=== PATIENT | female | born 1960 | race Caucasian/White ===

== ENCOUNTER 2018-06-07 12:41 | Outpatient (CLI) | payer OTHER | END 2018-06-07 12:42 | disposition home or self-care (01) | LOC: C.LAB 12:41 ==

== ENCOUNTER 2018-06-12 09:43 | Outpatient (CLI) | payer OTHER | END 2018-06-12 09:44 | disposition home or self-care (01) | LOC: C.CTH 09:43 | DX: I72.9 Aneurysm of unspecified site (principal) ==